=== PATIENT | female | born 1945 | race Caucasian/White ===

== ENCOUNTER 2017-12-10 14:01 | Outpatient (CLI) | payer MEDICARE, OTHER | END 2017-12-10 14:02 | disposition home or self-care (01) | LOC: BICMAMMO 14:01 | PROVIDERS: ATTEND Internal Medicine Hematology & Oncology | DX: Z08 Encounter for follow-up examination after completed treatment for malignant neoplasm (principal); R92.1 Mammographic calcification found on diagnostic imaging of breast; Z85.3 Personal history of malignant neoplasm of breast | CPT/HCPCS: 77065; G0279 ==

== ENCOUNTER 2018-06-24 06:33 | Outpatient (CLI) | payer MEDICARE, OTHER ==
[2018-06-24 16:59] LABS: #Eosinphils 0.1 thou/uL (0.0-0.7); #Lymphocytes 1.3 thou/uL (1.20-3.40); #Monocytes 1.1 thou/uL (0.11-0.59); #Neutrophils 5.5 thou/uL (1.40-6.50); %Basophils 0.6 % (0.0-1.0); %Eosinophils 1.6 % (0.0-10.0); %Lymphocytes 16.4 % (21.0-51.0); %Monocytes 13.3 % (0.0-10.0); %Neutrophils 68.1 % (42.0-75.0); Hemoglobin 13.4 g/dL (12.0-16.0); Mean Corpuscular HGB CONC 32.5 g/dL (32.0-36.0); Mean Corpuscular Hemoglobin 32.2 pg (27.0-31.0); Mean Corpuscular Volume 99.2 fL (78.0-98.0); Platelet Count 489 thou/uL (130-400); RBC Distribution Width 12.4 % (11.5-14.5); Red Blood Cell (RBC) Count 4.16 mill/uL (4.20-5.40); White Blood Cell (WBC) Count 8.1 thou/uL (4.8-10.8)
== END 2018-06-24 06:34 | disposition home or self-care (01) ==
LOC: LABBT 06:33
PROVIDERS: ATTEND Orthopaedic Surgery
DX: Z01.812 Encounter for preprocedural laboratory examination (principal); S62.101A Fracture of unspecified carpal bone, right wrist, initial encounter for closed fracture
CPT/HCPCS: 85025

== ENCOUNTER 2018-06-28 09:49 | Day surgery (SDC) | payer MEDICARE, OTHER ==
[2018-06-24 15:45] VITALS: BMI 26.4
[2018-06-28] MEDS ORDERED: Bupivacaine HCl 0.5%/Epinephrine 1:200,000/PF 30 ml Vial ONE (10:15)
[2018-06-28] MEDS ORDERED: ePHEDrine/0.9% NaCl/PF SYRINGE 50 mg/10 ml ONE (10:45)
[2018-06-28] MEDS ORDERED: PROPOFOL 200 MG/20 ML VIAL ONE (10:45)
[2018-06-28] MEDS ORDERED: Lidocaine 1% PF 5 ML VIAL ONE (10:45)
[2018-06-28] MEDS ORDERED: Ondansetron PF 4 MG/2 ML Vial ONE (10:45)
[2018-06-28] MEDS ORDERED: CEFAZOLIN 2 GM/50 ML BAG ONE (11:01)
[2018-06-28] MEDS ORDERED: Midazolam HCl 2 mg/2 ml Vial ONE (11:21)
[2018-06-28] MEDS ORDERED: Fentanyl 100 MCG/2 ML VIAL ONE (11:21)
[2018-06-28] MEDS ORDERED: Clindamycin/D5W 900 mg/50 ml Premix Bag ONE (12:54)
--- NOTE | 2018-06-28 15:58 | RAD ---
RIGHT WRIST THREE VIEW 06/28/18 HISTORY: Fracture. COMPARISON: None. FINDINGS: Satisfactory postoperative appearance of the volar plate and screw fixation. There are subcortical cysts in the medial lunate. IMPRESSION: Satisfactory postoperative appearance. POS: [facility]
--- NOTE | 2018-06-29 07:19 | OP ---
DATE OF PROCEDURE: 06/28/2018 PREOPERATIVE DIAGNOSIS: Right distal radius fracture, volar conteh. POSTOPERATIVE DIAGNOSIS: Right distal radius fracture, volar conteh. PROCEDURES PERFORMED: 1. Open reduction and internal fixation of right distal radius fracture. 2. Application of short-arm splint. ELECTRIC DETECTOR OPERATOR: Christine Dunbar PA-C. ANESTHESIOLOGIST: Tr Sheffield. ANESTHESIA: The patient received an LMA with a supraclavicular single shot. ESTIMATED BLOOD LOSS: 70 mL. IMPLANTS: Synthes narrow 6-hole Variable Angle 2.4/2.7 distal locking plate, four 2.4 screws, three 2.7 cortical screws. ANTIBIOTICS: Clindamycin 900. TOURNIQUET TIME: Zero. COMPLICATIONS: None. HISTORY OF PRESENT ILLNESS: Ms. Gallo is a 72-year-old female, presented with a right distal radius fracture. The patient has a history of lymphedema. She is right-hand dominant. 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 She had a volar conteh, was concerned about potential mild reduction of this fracture over time. I discussed with her that she had about 20 degrees volar angulation on x-rays and I did not think that would be ideal. I felt like we needed to perform surgery to improve the patient's volar tilt. She understood the risks and benefits of surgery, pain, scar, bleeding, infection, damage to vital structures, decreased range of motion and strength, nonunion, malunion, edema, need for further surgeries, loss of life or limb. The patient understood the risks and benefits of procedure and elected to proceed. DESCRIPTION OF PROCEDURE: Time-out was performed designating the patient's right upper extremity as the operative site, based on site, consents and markings. After time-out, the patient's right upper extremity was prepped and draped in a sterile fashion. We did not bring tourniquet up for the procedure. We made an incision down on the top of the flexor carpi radialis; came down the flexor carpi radialis, there was a vein that was cauterized subcu. We then came down to the patient's FCR with a knife, exposed, came down to fascia which was split, came down to the patient's pronator quadratus, which retracted the artery as well as the nerve and vessels as we went through the patient's pronator quadratus laterally. Coming down onto the bone, we pulled off the flexor pollicis longus bluntly and more proximally and exposed the patient's fracture site. We used elevators to elevate throughout. We then moved back to the patient's fracture. We reduced it under fluoroscopic guidance and placed the plate in position and put a screw in the hole, which I screwed in position, ensured that was on the plate and placed two screws to help with reduction with two pins distally. We placed four 2.4 locking screws distally, then placed two more 2.7 screws proximally. I had overall good reduction on AP, lateral, oblique, and ulnar-deviated views. I washed. We controlled the bleeding. There was no excessive bleeding. I had a small branch of the artery, which we had ligated, which we had cauterized. There was some oozing generally a bit, but otherwise there was no bleeding. We closed the pronator quadratus. I then washed. I closed the subcu with 2-0 and 3-0 nylon for skin. The patient will be placed in a splint. The patient will be given instructions for elevation, range of motion. Follow up in about 2 weeks. Job ID: [id number]
== END 2018-06-28 16:05 | disposition home or self-care (01) ==
LOC: SDC 09:49
PROVIDERS: ATTEND Orthopaedic Surgery
PROC: 0PSH04Z Reposition Right Radius with Internal Fixation Device, Open Approach (ICD-10-PCS; principal; 2018-06-28)
DX: S52.561A Barton's fracture of right radius, initial encounter for closed fracture (principal); E78.00 Pure hypercholesterolemia, unspecified; Z85.3 Personal history of malignant neoplasm of breast; Z79.811 Long term (current) use of aromatase inhibitors; Z79.899 Other long term (current) drug therapy; Z88.0 Allergy status to penicillin; W19.XXXA Unspecified fall, initial encounter; Y92.524 Gas station as the place of occurrence of the external cause
CPT/HCPCS: 25607; 73110; 76000; C1713 ×3; J0670; J2001; J2250; J2405; J2704; J3010; J3490

== ENCOUNTER 2018-08-02 13:02 | Outpatient (CLI) | payer MEDICARE, OTHER ==
--- NOTE | 2018-08-02 14:31 | RAD ---
PA AND LATERAL CHEST X-RAY: 08/02/2018 HISTORY: Dyspnea. The patient has a history of right-sided breast cancer. COMPARISON: None available. FINDINGS: A left internal jugular vein CT injectable Mediport catheter is noted in place with the tip overlying the expected location of the SVC. There is an area of increased density overlying the right chest, and there appear to be changes relat ed to a right mastectomy, and this is likely related to a breast prosthesis. This limits evaluation on the frontal projection, but no obvious mass or pulmonary nodule is appreciated. The lungs are oth erwise clear. There is severe right convex scoliosis of the thoracic spine with compensatory curvature of the thora columbar spine. There is a lobulated mass-like density overlying the chest, centrally, on the latera l projection, which is thought to be related to the tortuosity and increased prominence of the thorac ic aorta, due to the severe scoliotic curvature. Osteopenia is present. No other findings. IMPRESSION: 1. No acute cardiopulmonary process. 2. Rounded area of increased density overlying the right chest, likely related to a right breast pro sthesis, with findings suggesting evidence of a right mastectomy. 3. Left internal jugular vein Mediport catheter in place. 4. Osteopenia and right convex scoliosis of the thoracic spine. POS: [facility]
== END 2018-08-02 13:03 | disposition home or self-care (01) ==
LOC: RAD 13:02
PROVIDERS: ATTEND Internal Medicine Critical Care Medicine
DX: R06.00 Dyspnea, unspecified (principal)
CPT/HCPCS: 71046

== ENCOUNTER 2018-12-12 09:07 | Outpatient (CLI) | payer MEDICARE, OTHER ==
--- NOTE | 2018-12-12 09:42 | MMO ---
Left Breast MAMMO Unilat Diag DDI LT+PERI. CLINICAL HISTORY: Patient is 73 years old and is seen for diagnostic exam. The patient has the following family history of breast cancer: maternal grandmother. The patient has a history of right Ultrasound Guided Core Biopsy in December, and right Mastectomy in 2014. VIEWS: The views performed were: left craniocaudal with tomosynthesis; left mediolateral oblique with tomosynthesis; and left mediolateral with tomosynthesis. FILMS COMPARED: The present examination has been compared to prior imaging studies performed at [facility] on 01/08/2015, 10/16/2016 and 12/10/2017, and at [facility] on 11/26/2009. MAMMOGRAM FINDINGS: There are scattered fibroglandular densities. There are benign appearing calcifications in the left breast. There are no suspicious masses, suspicious calcifications, or new areas of architectural distortion. IMPRESSION: THERE IS NO MAMMOGRAPHIC EVIDENCE OF MALIGNANCY. A ROUTINE FOLLOW-UP MAMMOGRAM IN 1 YEAR IS RECOMMENDED. THE RESULTS OF THIS EXAM WERE SENT TO THE PATIENT. ACR BI-RADS Category 2 - Benign finding MAMMOGRAPHY NOTE: 1. A negative mammogram report should not delay a biopsy if a dominant of clinically suspicious mass is present. 2. Approximately 10% to 15% of breast cancers are not detected by mammography. 3. Adenosis and dense breasts may obscure an underlying neoplasm.
== END 2018-12-12 09:08 | disposition home or self-care (01) ==
LOC: BICMAMMO 09:07
PROVIDERS: ATTEND Internal Medicine Hematology & Oncology
DX: C50.511 Malignant neoplasm of lower-outer quadrant of right female breast (principal); Z80.3 Family history of malignant neoplasm of breast; Z91.89 Other specified personal risk factors, not elsewhere classified
CPT/HCPCS: 77065; G0279

== ENCOUNTER 2019-01-25 19:30 | Outpatient (CLI) | payer MEDICARE, OTHER | END 2019-01-25 19:31 | disposition home or self-care (01) | LOC: SLEEPLAB 19:30 | PROVIDERS: ATTEND Internal Medicine Critical Care Medicine | DX: G47.33 Obstructive sleep apnea (adult) (pediatric) (principal); R53.83 Other fatigue; R40.0 Somnolence; R06.83 Snoring | CPT/HCPCS: 95811 ==

== ENCOUNTER 2019-12-12 14:49 | Outpatient (CLI) | payer MEDICARE, OTHER ==
--- NOTE | 2019-12-12 15:11 | MMO ---
Left Breast MAMMO Unilat Diag DDI LT+PERI. CLINICAL HISTORY: Patient is 74 years old and is seen for diagnostic exam. The patient has the following family history of breast cancer: maternal grandmother. The patient has a history of right Ultrasound Guided Core Biopsy in December, and right Mastectomy in 2014. VIEWS: The views performed were: left craniocaudal with tomosynthesis; left mediolateral oblique with tomosynthesis; and left mediolateral with tomosynthesis. FILMS COMPARED: The present examination has been compared to prior imaging studies performed at [facility] on 01/08/2015, 10/16/2016, 12/10/2017 and 12/12/2018. This study has been interpreted with the assistance of computer-aided detection. MAMMOGRAM FINDINGS: There are scattered fibroglandular densities. There are benign appearing calcifications in the left breast. There are no suspicious masses, suspicious calcifications, or new areas of architectural distortion. IMPRESSION: THERE IS NO MAMMOGRAPHIC EVIDENCE OF MALIGNANCY. A ROUTINE FOLLOW-UP MAMMOGRAM IN 1 YEAR IS RECOMMENDED. THE RESULTS OF THIS EXAM WERE SENT TO THE PATIENT. ACR BI-RADS Category 2 - Benign finding MAMMOGRAPHY NOTE: 1. A negative mammogram report should not delay a biopsy if a dominant of clinically suspicious mass is present. 2. Approximately 10% to 15% of breast cancers are not detected by mammography. 3. Adenosis and dense breasts may obscure an underlying neoplasm. Reported by: VASILIY BADILLO MD Electonically Signed: [id number]
== END 2019-12-12 14:50 | disposition home or self-care (01) ==
LOC: BICMAMMO 14:49
PROVIDERS: ATTEND Internal Medicine Hematology & Oncology
DX: C50.919 Malignant neoplasm of unspecified site of unspecified female breast (principal)
CPT/HCPCS: 77065; G0279

== ENCOUNTER 2020-12-20 08:28 | Outpatient (CLI) | payer MEDICARE, OTHER | END 2020-12-20 08:29 | disposition home or self-care (01) | LOC: BICMAMMO 08:28 | PROVIDERS: ATTEND Internal Medicine Hematology & Oncology | DX: Z12.31 Encounter for screening mammogram for malignant neoplasm of breast (principal); Z90.11 Acquired absence of right breast and nipple; Z80.3 Family history of malignant neoplasm of breast | CPT/HCPCS: 77063; 77067 ==